=== PATIENT | female | born 1980 | race Caucasian/White ===

== ENCOUNTER 2016-09-05 22:52 | Emergency (ER) | payer MEDICAID ==
[~2016-09-05] VITALS: Ht 170.2 cm; Wt 69.7 kg
[~2016-09-05 22:52] MED LIST: IBUP200T48 PO; METR500T PO; OXYC-302 PO
[2016-09-06 00:26] LABS: ASPARTATE AMINO TRANSFERASE 16 U/L (15-37); BLOOD UREA NITROGEN 13 mg/dL (7-18)
[2016-09-06] MEDS ORDERED: HYDROcodone/APAP 5/325 TABLET ONE (00:51)
[2016-09-06 00:55] VITALS: BP 111/78
[2016-09-06] MEDS ORDERED: HYDROcodone/APAP 5/325 TABLET PO ONE (01:00)
== END 2016-09-06 00:58 | disposition home or self-care (01) ==
LOC: ED 09-06 00:57
DX: R10.9 Unspecified abdominal pain (principal)
CPT/HCPCS: 36415; 80053; 81003; 83690; 84703; 85025; 85379; 99284

== ENCOUNTER 2016-11-28 03:29 | Emergency (ER) | payer MEDICAID ==
[~2016-11-28] VITALS: Ht 170.2 cm; Wt 67.0 kg
[2016-11-28 04:06] LABS: ASPARTATE AMINO TRANSFERASE 32 U/L (15-37); BLOOD UREA NITROGEN 9 mg/dL (7-18)
[2016-11-28 04:12] LABS: ACETAMINOPHEN < 2 mcg/mL (10-30)
[2016-11-28] MEDS ORDERED: IBUPROFEN 200 MG TABLET ONE ×2 (05:14→12:33)
[2016-11-28 05:21] LABS: DAU SCREEN DISCLAIMER
[2016-11-28] MEDS ORDERED: IBUPROFEN 200 MG TABLET PO ONE ×2 (05:30→12:30)
[2016-11-28] MEDS ORDERED: ACET325C PO (06:20)
[2016-11-28 07:43] VITALS: BP 120/83
== END 2016-11-28 13:14 | disposition home or self-care (01) ==
LOC: ED 03:45
DX: Z00.01 Encounter for general adult medical examination with abnormal findings (principal); R45.851 Suicidal ideations; F32.9 Major depressive disorder, single episode, unspecified
CPT/HCPCS: 36415; 80053; 80307; 80329; 81001; 84703; 85025; 87077; 87086; 87186; 99284; G0480

== ENCOUNTER 2019-03-30 07:56 | Emergency (ER) | payer MEDICAID ==
[~2019-03-30] VITALS: Ht 170.2 cm; Wt 68.4 kg
[~2019-03-30 07:56] MED LIST changes: +ACET325C3 PO; -IBUP200T48 PO; +IBUP200T49 PO
[2019-03-30 07:59] VITALS: BP 141/89
--- NOTE | 2019-03-30 08:59 | NUR ---
REPORT FROM DAKSHA.
[2019-03-30] MEDS ORDERED: DIAZEPAM 5 MG TABLET PO ONE (09:00)
[2019-03-30] MEDS ORDERED: KETOROLAC 30 MG/1 ML IM ONE (09:00)
[2019-03-30] MEDS ORDERED: HYDROcodone/APAP 5/325 TABLET PO ONE (09:00)
[2019-03-30] MEDS ORDERED: DIAZEPAM 5 MG TABLET ONE (09:06)
[2019-03-30] MEDS ORDERED: HYDROcodone/APAP 5/325 TABLET ONE (09:06)
[2019-03-30] MEDS ORDERED: KETOROLAC 30 MG/1 ML ONE (09:06)
--- NOTE | 2019-03-30 09:11 | NUR ---
PT IN XR. WILL MEDICATE WHEN BACK IN ROOM
--- NOTE | 2019-03-30 10:23 | NUR ---
Patient/Caregiver given discharge instructions and they have confirmed that they understand the instructions. Patient ambulatory with steady gait.
== END 2019-03-30 10:29 | disposition home or self-care (01) ==
LOC: ED 09:43
DX: G89.29 Other chronic pain (principal); M54.5 Low back pain; M54.6 Pain in thoracic spine; J00 Acute nasopharyngitis [common cold]
CPT/HCPCS: 71046; 96372; 99283; J1885

== ENCOUNTER 2020-10-17 20:19 | Emergency (ER) | payer SELFPAY ==
[~2020-10-17] VITALS: Ht 172.7 cm; Wt 70.0 kg
[~2020-10-17 20:19] MED LIST changes: -OXYC-302 PO; +OXYC1TAB14 PO
--- NOTE | 2020-10-17 20:41 | NUR ---
blood sugar 98
--- NOTE | 2020-10-17 21:20 | NUR ---
pt up to restroom, unsteady gait. [id number]
--- NOTE | 2020-10-17 21:23 | NUR ---
ua collected and sent to lab
[2020-10-17] MEDS ORDERED: ONDANSETRON 2MG/ML, 2ML IVPush ONE (21:30)
[2020-10-17] MEDS ORDERED: MORPHINE SULFATE 4 MG/ML, 1ML IVPush PRN (21:30)
[2020-10-17] MEDS ORDERED: SODIUM CHLORIDE FLUSH 10ML SYR IVF ONE (21:30)
[2020-10-17 21:31] LABS: MICROSCOPIC NOT IND
[2020-10-17 21:38] LABS: BASOPHILS % (AUTO) 0 % (0-1); EOSINOPHILS % (AUTO) 1 % (1-7); LYMPHOCYTES % (AUTO) 29 % (22-44); MEAN CORPUSCULAR HEMOGLOBIN 32.8 pg (27.0-34.8); MEAN CORPUSCULAR HGB CONC 34.5 g/dL (32.4-35.8); MEAN PLATELET VOLUME 6.9 fL (7.4-10.4); MONOCYTES % (AUTO) 5 % (2-9); NEUTROPHILS % (AUTO) 66 % (42-75); PLATELET COUNT 282 x10^3/uL (130-400); RED BLOOD COUNT 4.72 x10^6/uL (3.82-5.3); RED CELL DISTRIBUTION WIDTH 12.7 % (9.6-15.2)
[2020-10-17 21:43] LABS: ALBUMIN 4.1 g/dL (3.4-5.0); ANION GAP 7 mmol/L (5-15); CALCIUM 8.7 mg/dL (8.5-10.1); CHLORIDE 114 mmol/L (98-107)
[2020-10-17 21:49] LABS: ALANINE AMINOTRANSFERASE 34 U/L (12-78); ALKALINE PHOSPHATASE 158 U/L (45-117); BILIRUBIN,TOTAL 0.3 mg/dL (0.2-1.0); CREATININE 0.73 mg/dL (0.55-1.02); TOTAL PROTEIN 8.3 g/dL (6.4-8.2)
--- NOTE | 2020-10-17 22:24 | NUR ---
lunch rn: pt up to and from the bathroom independently, steady gait.
[2020-10-17] MEDS ORDERED: IBUPROFEN 200 MG TABLET PO ONE (22:30)
[2020-10-17] MEDS ORDERED: IBUPROFEN 600 MG TABLET ONE (22:53)
[2020-10-17 23:00] VITALS: BP 118/70
--- NOTE | 2020-10-17 23:27 | NUR ---
pt more alert, able to talk more clearly. friend mary at bedside, able to drive pt home. pt able to walk with steady gait, anxious about kids at home. pt given socks and gown to dc home in.
== END 2020-10-17 23:32 | disposition home or self-care (01) ==
LOC: ED 23:15
DX: R10.11 Right upper quadrant pain (principal); R11.0 Nausea
CPT/HCPCS: 36415; 76700; 80053; 81003; 82962; 83690; 84703; 85025; 99284

== ENCOUNTER 2021-01-10 17:09 | Emergency (ER) | payer MEDICAID ==
[~2021-01-10 17:09] MED LIST changes: +OXYC1TAB12 PO; -OXYC1TAB14 PO
--- NOTE | 2021-01-10 18:02 | NUR ---
CALLED FOR TRIAGE, "SHE WENT TO THE BR"
--- NOTE | 2021-01-10 18:12 | NUR ---
CALLED FOR TRIAGE, NO ANSWER
--- NOTE | 2021-01-10 18:20 | NUR ---
CALLED FOR TRIAGE, NO ANSWER
== END 2021-01-10 18:22 | disposition left against medical advice (07) ==
LOC: ED 17:20
DX: R51.9 Headache, unspecified (principal); Z53.21 Procedure and treatment not carried out due to patient leaving prior to being seen by health care provider